=== PATIENT | female | born 1980 | race Caucasian/White ===

== ENCOUNTER → 2020-11-19 11:55 | Outpatient (BNVA) | payer OTHER, SELFPAY | PROVIDERS: PCP Internal Medicine; Visit Provider Physician Assistant Medical | DX: S63.501A Unspecified sprain of right wrist, initial encounter (principal); S56.911A Strain of unspecified muscles, fascia and tendons at forearm level, right arm, initial encounter; W51.XXXA Accidental striking against or bumped into by another person, initial encounter | CPT/HCPCS: 73110; 99203 ==

== ENCOUNTER → 2020-11-27 15:02 | Outpatient (BNVA) | payer OTHER, SELFPAY | PROVIDERS: PCP Internal Medicine; Visit Provider Physician Assistant Medical | DX: S63.501A Unspecified sprain of right wrist, initial encounter (principal); W22.8XXA Striking against or struck by other objects, initial encounter | CPT/HCPCS: 99213 ==

== ENCOUNTER → 2020-12-09 14:56 | Outpatient (BNVA) | payer OTHER, SELFPAY | PROVIDERS: PCP Internal Medicine; Visit Provider Physician Assistant Medical | DX: S69.81XD Other specified injuries of right wrist, hand and finger(s), subsequent encounter (principal); W22.8XXD Striking against or struck by other objects, subsequent encounter | CPT/HCPCS: 99213 ==

== ENCOUNTER 2021-01-13 15:00 | Outpatient (RCR) | payer OTHER, SELFPAY | END 2021-02-25 08:21 | disposition home or self-care (01) | LOC: HO.OT 15:00 | PROVIDERS: PCP Internal Medicine; Visit Provider Physician Assistant Medical | DX: S69.91XD Unspecified injury of right wrist, hand and finger(s), subsequent encounter (principal) | CPT/HCPCS: 97033; 97110; 97165; 97760 ==

== ENCOUNTER → 2023-11-15 11:42 | Outpatient (BNVA) | payer OTHER, SELFPAY | PROVIDERS: PCP Internal Medicine; Visit Provider Physician Assistant Medical | DX: S63.602A Unspecified sprain of left thumb, initial encounter (principal); X50.1XXA Overexertion from prolonged static or awkward postures, initial encounter | CPT/HCPCS: 73110; 73130; 99204 ==

== ENCOUNTER → 2023-11-23 15:13 | Outpatient (BNVA) | payer OTHER, SELFPAY | PROVIDERS: PCP Internal Medicine; Visit Provider Physician Assistant Medical | DX: S63.8X2A Sprain of other part of left wrist and hand, initial encounter (principal); X50.1XXA Overexertion from prolonged static or awkward postures, initial encounter | CPT/HCPCS: 99213 ==

== ENCOUNTER → 2023-12-07 15:19 | Outpatient (BNVA) | payer OTHER, SELFPAY | PROVIDERS: PCP Internal Medicine; Visit Provider Registered Nurse | DX: S63.592D Other specified sprain of left wrist, subsequent encounter (principal); S63.602D Unspecified sprain of left thumb, subsequent encounter; X50.1XXD Overexertion from prolonged static or awkward postures, subsequent encounter | CPT/HCPCS: 99213 ==

== ENCOUNTER → 2024-01-03 15:53 | Outpatient (BNVA) | payer OTHER, SELFPAY | PROVIDERS: PCP Internal Medicine Nephrology; Visit Provider Physician Assistant Medical | DX: S63.592D Other specified sprain of left wrist, subsequent encounter (principal); X50.1XXD Overexertion from prolonged static or awkward postures, subsequent encounter | CPT/HCPCS: 99213 ==

== ENCOUNTER 2024-03-09 14:29 | Outpatient (RCR) | payer OTHER, BC, SELFPAY ==
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
== END 2024-04-04 08:19 | disposition home or self-care (01) ==
LOC: HO.OT 14:29
PROVIDERS: PCP Internal Medicine Nephrology; Visit Provider Registered Nurse
DX: S63.502D Unspecified sprain of left wrist, subsequent encounter (principal)
CPT/HCPCS: 97033; 97110; 97140; 97166; 97530; 97535

== ENCOUNTER 2024-08-30 08:57 | Outpatient (RCR) | payer OTHER, BC, SELFPAY | END 2024-08-30 09:44 | disposition home or self-care (01) | LOC: HO.OT 08:57 | PROVIDERS: PCP Internal Medicine Nephrology; Visit Provider Orthopaedic Surgery | DX: S63.502D Unspecified sprain of left wrist, subsequent encounter (principal) | CPT/HCPCS: 97110; 97165 ==

== ENCOUNTER 2025-02-06 14:22 | Outpatient (AMB) | payer BC, OTHER, SELFPAY ==
--- NOTE | 2025-02-06 14:26 | A.OFFPC_ITS ---
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 Accompanied by: Self / Same As Patient Allergies sulfamethoxazole (From BACTRIM) Allergy (Intermediate, Verified 02/06/25 14:26) RASH trimethoprim (From BACTRIM) Allergy (Intermediate, Verified 02/06/25 14:26) RASH ciprofloxacin (From CIPRO) Allergy (Unknown, Verified 02/06/25 14:26) VOMITTING From CIPRO Adverse Reaction (Unknown, Uncoded 11/23/19 16:44) VOMITTING Medication List - Last Reconciled 02/06/25 by Sam Joyner MD albuterol sulfate 90 mcg/actuation (Ventolin HFA) 2 puffs inhalation Q6H PRN escitalopram oxalate 10 mg PO DAILY gabapentin 300 mg PO BID Tobacco use date assessed: 02/06/25 Dental Screening Dental Screen Date: 02/06/25 Did you have a dental visit in the last 12 months?: Yes HPI HPI Comments History of Present Illness Details History of Present Illness The patient is a 44 year old individual presenting to [facility] care with a new primary care physician. Anxiety and Depression: The patient has a long-standing history of depression and anxiety. The patient previously saw a therapist about six years ago, but the therapist retired. 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 The patient also notes depression and anxiety related to the patient's partner's history of alcoholism, although the partner has been sober for 11 months. The patient reports anxiety is more prominent than depression at present, with symptoms of shakiness. Past medication trials include Zoloft, which the patient did not like, and Prozac, which made the patient feel like a zombie. Mild Asthma: The patient has a history of mild asthma and is prescribed an albuterol inhaler for as-needed use. Vulvodynia: The patient has a diagnosis of vulvodynia, a gynecological condition causing chronic nerve pain. The patient takes gabapentin and receives as-needed nerve injections from a manager clinical applications for this condition. The patient previously participated in pelvic floor physical therapy. Tobacco Use: The patient is a former cigarette smoker, having quit approximately 12 years ago. The patient smoked for about five years, typically more in the morning, at night, and socially, but less than a full pack per day. 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 - Family Status: The patient's partner h as been sober from alcoholism for 11 months. - The patient has children. - Stressors: Reports feeling overwhelmed with responsibilities as a mother, teacher, and caregiver for aging parents. - Substance Use: Former cigarette smoker , quit 12 years ago after smoking for 5 years. Family History: - Mother had an emergency surgery for a perforated colon, with no cancer found. - Irritable bowel syndrome (IBS) is pres ent in the family. - Denies family history of cancer. Past Medical History - Mild asthma - Depression, longstanding - Anxiety, longstanding - Vulvodynia - Hospitalization: Only for childbirth v ia . Health Maintenance - An order will be placed for a screenin g mammogram. - A referral will be placed for a dermat ology consultation for evaluation of a facial skin lesion. - Comprehensive bloodwork was ordered, i ncluding CBC, CMP, HbA1c, hepatitis B and C, HIV, lipid panel, magnesium, syphilis screen, thyroid screen, vitamin B12, folate, and vitamin D. - A follow-up visit is scheduled in two weeks to review lab results and assess the patient's response to escitalopram. [facility] Medical History (Updated 02/06/25 @ 15:21 by Sam Joynre MD) Tobacco use Vulvodynia Mild intermittent asthma Anxiety and depression Skin macule Family History (Updated 02/06/25 @ 14:34 by Piper Mack CMA) Mother HTN (hypertension) Colon perforation Father Seizure Social History Housing: House Patient Tobacco Use Status: Former Tobacco user service: No Current occupational status: employed Cognitive needs: No Hearing needs: No Vision needs: Yes (glasses & contacts) Questionnaire PHQ-9 Over the last 2 weeks, how often have you been bothered by any of the following problems? 1. Little interest or pleasure in doing things: not at all 2. Feeling down, depressed, or hopeless: not at all 3. Trouble falling or staying asleep, or sleeping too much: nearly every day 4. Feeling tired or having little energy: more than half the days 5. Poor appetite or overeating: not at all 6. Feeling bad about yourself - or that you are a failure or have let yourself or your family down: not at all 7. Trouble concentrating on things, such as reading the newspaper or watching television: not at all 8. Moving or speaking so slowly that other people could have noticed. Or the opposite - being so fidgety or restless that you have been moving around a lot more than usual: more than half the days 9. Thoughts that you would be better off or of hurting yourself in some way: not at all Total score: 7 Depression Screening Interpretation: Negative Depression Screening Done: Yes Source: Developed by Drs. Cameron Roa, Mary Elizalde, Segundo Kumar and colleagues, with an educational quang from [employer]. Thrive Questionnaire Date Thrive assessed: 02/06/25 I am a: Patient What is your living situation today?: I have a steady place to live Within the past 12 months, did the food you bought not last and you didn't have the money to get more?: Never true Within the past 12 months, did you worry whether your food would run out before you got money to buy more?: Never true Do you have trouble paying for medicines?: No Do you have trouble getting transportation to medical appointments?: No Do you have trouble paying your heating and electricity bill?: No Do you have trouble taking care of your child, family member or friend?: No Do you have trouble with day-to-day activities such as bathing, preparing meals, shopping, managing finances, etc.?: No Are you currently unemployed and looking for a job?: No Are you interested in more education?: No Please select the resources that you would like help with: None Currently or been in a relationship where the following occur: No concerns reported THRIVE Score: 0 AUDIT C Alcohol Use Questionnaire (AUDIT-C) 1. How often do you have a drink containing alcohol?: Monthly or less 2. How many drinks containing alcohol do you have on a typical day when you are drinking?: 1 or 2 3. How often do you have six or more drinks on one occasion?: Less than monthly Total Score: 2 SARA-7 AMB Questionnaire SARA-7 Date SARA - 7 assessed: 02/06/25 Feeling nervous, anxious, or on edge: 3 = Nearly every day Not being able to stop or control worryin = More than half the days Worrying too much about different things: 2 = More than half the days Trouble relaxin = Several days Being so restless that it is hard to sit still: 1 = Several days Becoming easily annoyed or irritable: 0 = Not at all Feeling afraid as if something awful might happen: 0 = Not at all Total SARA-7 score (0-4 normal; 5-9 mild; 10-14 moderate; 15-21 severe): 9 Source: Developed by Drs. Cameron Roa, Mary Elizalde, Segundo Kumar and colleagues, with an educational quang from [employer]. Review of Systems Narrative Review of Systems - Respiratory: Reports a history of mild asthma and chronic postnasal drip. - Psychiatric: Reports long-standing depression and anxiety; feels overwhelmed and shaky. - Gynecological: Reports chronic pelvic pain secondary to vulvodynia. - Skin: Reports a crescencio on the face. - Lower Extremities: Denies swelling. 10-point ROS reviewed and negative except as noted in HPI Physical exam (Primary Care) Vital Signs: Last Vital Signs Temp 97.9 F 02/06/25 14:30 Pulse 98 02/06/25 14:30 BP 125/70 02/06/25 14:30 Pulse Ox 100 02/06/25 14:30 Oxygen Delivery Method Room Air 02/06/25 14:30 BMI result Body Mass Index 23.0 Tobacco/Smoking Status: Tobacco use Status Tobacco use date assessed 02/06/25 02/06/25 14:27 Patient Tobacco Use Status Former Tobacco user 02/06/25 14:38 PHQ-9: PHQ-9 Score PHQ-9: Total score 7 02/06/25 14:27 Depression Screening Interpretation: Negative Thrive Assessment: Date of Thrive Assessment Date Thrive assessed 02/06/25 02/06/25 14:27 Currently or been in a relationship where the following occur: No concerns reported Narrative Physical Exam General: Well-appearing, in no acute distress. Vital signs: Within normal limits. HEENT: Normocephalic, atraumatic. PERRLA, EOMI. Conjunctiva clear, sclera anicteric. Oropharynx clear, mucous membranes moist. TMs intact bilaterally. Neck: Supple, no lymphadenopathy, no thyromegaly, no JVD or carotid bruits. Cardiovascular: RRR, normal S1/S2, no murmurs, rubs, or gallops. Peripheral pulses 2+ and symmetric. No edema. Respiratory: Lungs clear to auscultation bilaterally, no wheezes, rales, or rhonchi. Normal effort. Abdomen: Soft, non-tender, non-distended. Normoactive bowel sounds. No hepatosplenomegaly, no masses. MSK: Full range of motion, no joint swelling or deformity. Normal gait. Skin: Warm, dry, intact. No rashes, lesions, or pallor. Neuro: Alert and oriented x3. Cranial nerves II-XII intact. Strength 5/5 throughout. Sensation intact. Reflexes 2+ symmetric. Normal coordination and gait. Psych: Appropriate mood and affect. Normal judgment and insight. Patient reports history of depression and anxiety, currently considering restarting therapy and medication. Office Procedures Flu Questionnaire Does the patient have a severe egg allergy?: No Does the patient have severe life threatening allergies?: No Does the patient have a fever or illness today?: No Has the patient ever had Guillain-Greentop Syndrome?: No Has the patient ever had any past reaction to a flu shot?: No Immunizations Fluarix [id number] (PF) 45 mcg (15 mcg x 3)/0.5 mL IM syringe Performing Provider: Sam Joyner MD Performing Location: [facility] Documented (not given) by: Piper Mack CMA on 02/06/25 14:43 Reason Not Given: Received Previously Coding Level of Care Code New Pt Level 4 (91945) Diagnoses Anxiety and depression F41.9; F32.A Mild intermittent asthma J45.20 Vulvodynia N94.819 Tobacco use Z72.0 Assessment & Plan Assessment & Plan (1) Anxiety and depression: Code(s): F41.9 - Anxiety disorder, unspecified; F32.A - Depression, unspecified Category: Medical (2) Mild intermittent asthma: Code(s): J45.20 - Mild intermittent asthma, uncomplicated Category: Medical (3) Vulvodynia: Code(s): N94.819 - Vulvodynia, unspecified Category: Medical (4) Tobacco use: Code(s): Z72.0 - Tobacco use Category: Social Hx Plan Consent The risks, benefits, and alternatives of initiating treatment for anxiety were discussed. This included discussing that escitalopram (Lexapro) can cause fatigue and takes approximately four weeks to reach full therapeutic effect. After discussion, the patient provided verbal consent to start escitalopram 10 mg, proceed with recommended lab work, and accept referrals for a mammogram and therapy. Patient was informed and verbally consented to the use of an ambient scribe for clinic note documentation during this visit. Plan 1. Anxiety Disorder - Will initiate escitalopram (Lexapro) 10 mg daily for anxiety. - A 30-day supply was sent to the pharmacy. - The patient was counseled that the medication takes about four weeks to become fully effective and may cause initial fatigue. - Provided referral to [facility] for individual therapy; noted the convenience of telehealth services. 2. Allergic Rhinitis - A nasal spray will be prescribed for chronic postnasal drip. - Cetirizine will also be prescribed to help with allergic symptoms. 3. Vulvodynia - The patient will continue current management with gabapentin and as-needed nerve injections via the patient's manager clinical applications. Discussion Notes I met with the patient, a 44-year-old individual, who is establishing primary care. We discussed the patient's significant anxiety, which is multifactorial and exacerbated by stressors related to work, family, and a parent's health. I recommended initiating escitalopram 10 mg after reviewing the patient's prior medication trials, and I explained the benefits, potential side effects such as fatigue, and the four-week timeline for full therapeutic effect. The patient agreed to this plan. We also discussed the benefit of therapy, and I provided a referral to a behavioral health group that offers convenient telehealth services. We addressed necessary health maintenance, ordering baseline comprehensive labs, a screening mammogram, and a referral to dermatology for a facial skin lesion after I provided education on the ABCDEs of skin cancer. I will see the patient for a follow-up in two weeks to review these results and assess the response to the new medication. Patient Instructions - Start taking Escitalopram (Lexapro) 10 mg by mouth once daily for anxiety. - Be aware that this medication may take about 4 weeks to feel the full benefit and could make you feel tired at first. - Use the prescribed nasal spray and Cetirizine (an allergy pill) for your postnasal drip and allergy symptoms. - Call [facility] at [phone] to set up a therapy appointment. - They have a website you can look at and appointments are done over video call for your convenience. - We have ordered a mammogram for you; the imaging facility will call you to schedule it. - We have placed a referral for you to see a smokehouse worker (skin doctor). - Please call your insurance company to get a list of skin doctors in your network, then call our office to let us know who you will be seeing. - Please go to the lab today to have your blood drawn. - Schedule a follow-up appointment in two weeks to go over your lab results and see how the medication is working for you. Medical Decision Making The patient is a 44-year-old individual establishing primary care with chief concerns of anxiety and management of chronic conditions. 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 Given the patient's report of anxiety being more prominent than depression and poor past experiences with fluoxetine and sertraline, escitalopram was selected as an appropriate first- line agent due to its favorable efficacy and side-effect profile for anxiety disorders. A referral for therapy is crucial for addressing the underlying psychosocial stressors contributing to the patient's anxiety. The patient's chronic postnasal drip, in the context of a history of mild asthma, is suggestive of allergic rhinitis, making a trial of intranasal steroids and an oral antihistamine a reasonable next step. Age-appropriate health maintenance screenings were initiated, including a baseline mammogram and a dermatology evaluation for a facial lesion, as well as comprehensive baseline laboratory studies. A two-week follow-up is scheduled to monitor for medication side effects, assess initial response, and review diagnostic results. Total Time Statement 30 MIN Total time spent caring for the patient today includes pre-visit chart review, documentation, review of laboratory and diagnostic imaging results, medication reconciliation, medically necessary evaluation, counseling on diagnoses, care coordination, ordering appropriate tests and medications, review of tests performed by other providers, reporting test results to the patient, and communication with other healthcare providers. Orders: Orders Influenza [id number] Immunization Today Z23 - Encounter for immunization Complete Blood Count Auto Diff Today Z13.9 - Encounter for screening, un specified HIV Ab/Ag Today Z13.9 - Encounter for screening, unspecified Lipid Panel Today Z13.9 - Encounter for screening, unspecified Vitamin B12 and Folate Today Z13.9 - Encounter for screening, unspecified Hemoglobin A1c Today Z13.9 - Encounter for screening, unspecified Hepatitis B Surface Antigen Today Z13.9 - Encounter for screening, unspecified Syphilis Screen Today Z13.9 - Encounter for screening, unspecified Comprehensive Met. Panel Today Z13.9 - Encounter for screening, unspecified Hepatitis C Antibody Today Z13.9 - Encounter for screening, unspecified TSH reflex Free T4 Today Z13.9 - Encounter for screening, unspecified UA CC w/rflx Micro + Cult Today Z13.9 - Encounter for screening, unspecified Magnesium Today Z13.9 - Encounter for screening, unspecified Vitamin D 1,25 dihydroxy Today Z13.9 - Encounter for screening, unspecified Hepatitis B Surface Antibody Today Z13.9 - Encounter for screening, unspecified MM screening mammo BI Today Z12.31 - Encounter for screening mammogram for malignant neoplasm of breast Referrals Dermatology Referral L98.8 - Other specified disorders of the skin and subcutaneous tissue Medications: New escitalopram oxalate 10 mg PO DAILY 30 tabs 0RF cetirizine 10 mg PO DAILY 90 tabs 0RF azelastine administer into each nostril 1 spray intranasal BID 30 mL 0RF
[2025-02-06 14:30] VITALS: BP 125/70; PULSE 98; TEMP 36.6; O2SAT 100; BMI 23.0
--- OUTSIDE RECORDS SUMMARY | 2025-02-06 16:20 | XMS_ITS | Encounter Summary ---
Author Organization [facility] Address [address] [place] [phone] Phone Care Team Providers Care Elastic Attacher Zigzag Name Role Phone Nadine French MD Primary Care Provider [phone] Reason for Referral * Physical Therapy (Routine) - Closed Specialty Diagnoses / Procedures Referred By Contjoann t Referred To Contact Physical Therapy Diagnoses N94.10 UNSPECIFIED DYSPAREUNIA Procedures Established PT System, Provider Not In, PhD [id number] [place] [id number] Phone: tel: Referral ID Status Reason Start Date Expiration Date Visits Re quested Visits Authorized [id number] Closed 10/28/2016 03/07/2017 20 20 Encounter Details Date Type Department Care Team (Latest Contact Info) Description 03/03/2017 Transcribe Orders [facility] [address] [place] [address] Lisandro Ross MD [address] [place] [address] Encounter for rehabilitation (Primary Dx) Social History Tobacco Use Types Packs/Day Years Used Date Smoking Tobacco: Never Assessed Comments Unknown Sex and Gender Information Value Date Recorded Sex Assigned at Not on file Legal Sex Female 3:52 PM EDT Gender Identity Not on file Sexual Orientation Not on file documented as of this encounter Plan of Treatment Scheduled Referrals Name Type Priority Associated Diagnoses Orde r Schedule Ambulatory referral to [facility] Physical Therapy Outpatient Referral Routine Encounter for rehabilitation Ordered: 03/03/2017 documented as of this encounter Visit Diagnoses Diagnosis Encounter for rehabilitation- Primary documented in this encounter Care Teams Elastic Attacher Zigzag Relationship Specialty Start Date End Date Nadine French MD [address] [place] [address] PCP - General Internal Medicine 01/06/17 documented as of this encounter Additional Source Comments The information contained in this document represents components of the legal health record. It is not the complete legal health record.[facility]
--- OUTSIDE RECORDS SUMMARY | 2025-02-06 16:20 | XMS_ITS | Clinical Summary ---
Author Organization [facility] Address [address] [address] Phone Care Team Providers Care Hearing Therapy Director Name Role Phone Nadine French MD Primary Care Provider [phone] Social History Tobacco Use Types Packs/Day Years Used Date Smoking Tobacco: Never Assessed Education Answer Date Recorded Are you interested in more education? Not on anibal e 07/03/2022 Are you concerned about learning? Not on file 07/03/2022 No 07/03/2022 No 07/03/2022 Digital Access Answer Date Recorded No 08/04/2022 No 08/04/2022 No 08/04/2022 Reliable internet access at home? Not on file 08/04/2022 Device with a working camera? Not on file Comments Unknown Sex and Gender Information Value Date Recorded Sex Assigned at Not on file Legal Sex Female 3:52 PM EDT Gender Identity Not on file Sexual Orientation Not on file Plan of Treatment Health Maintenance Due Date Last Done Comments DEPRESSION SCREENING 1993 SMOKING Hx and SMOKELESS TOBACCO SCREENING 1994 HEPATITIS C SCREENING 06/05/1999 HIV ONE-TIME SCREENING (18-65 YEARS) 06/05/1999 PAP SMEAR 2002 MAMMOGRAM 2021 INFLUENZA VACCINE (#1) 2024 9, 12/25/2016, 12/03/2015, Additional history exists COVID-19 VACCINE ( season) 2024 05/16/2020 Adult Td,Tdap Booster 01/06/2025 01/06/2015 , 03/25/2012, 03/07/2007 HEPATITIS A VACCINES Aged Out No long er eligible based on patient's age to complete this topic HIB VACCINES Aged Out No longer eligi ble based on patient's age to complete this topic MENINGOCOCCAL VACCINES (ACWY) Aged Out No longer eligible based on patient's age to complete this topic MENINGOCOCCAL VACCINES (B) Aged Out N o longer eligible based on patient's age to complete this topic PNEUMOCOCCAL VACCINES (0-49 years) Aged Out No longer eligible based on patient's age to complete this topic Medical Devices Not on file [facility] [address] [place], [place] [address] [place] [address] [place], [place] [id number] Care Teams Hearing Therapy Director Relationship Specialty Start Date End Date Nadine French MD [address] [place] [address] PCP - General Internal Medicine 01/06/17 Additional Source Comments The information contained in this document represents components of the legal health record. It is not the complete legal health record.[facility]
== END 2025-02-06 15:09 | disposition home or self-care (01) ==
LOC: HO.HMCFMS 14:23
PROVIDERS: Visit Provider Student in an Organized Health Care Education/Training Program
DX: F41.9 Anxiety disorder, unspecified (principal); F32.A Depression, unspecified; J45.20 Mild intermittent asthma, uncomplicated; N94.819 Vulvodynia, unspecified; Z72.0 Tobacco use; Z23 Encounter for immunization

== ENCOUNTER 2025-02-06 14:22 | Outpatient (REF) | payer BC, SELFPAY ==
--- OUTSIDE RECORDS SUMMARY | 2025-02-06 16:57 | XMS_ITS | Clinical Summary ---
Author Organization [facility] Address [address] [place] [address] Care Team Providers Care Shoe Treer Name Role Phone Nadine French MD Primary Care Provider [phone] Allergies Active Allergy Reactions Criticality Noted Date Comments Ciprofloxacin Nausea And Vomiting Medium 04/19/2014 Sulfamethoxazole-Trimethoprim Hives Medium 2009 Medications acetaminophen (TYLENOL) 500 mg tablet Take 2 Tabs by mouth 3 times daily (with meals). 04/22/2017 Active albuterol HFA (PROAIR HFA ; PROVENTIL HFA ; VENTOLIN HFA) 90 mcg/actuation inhaler Inhale 2 Puffs into the lungs every 4 hours. 07/30/2016 Active fluticasone propionate (FLONASE) 50 mcg/actuation nasal spray Two sprays per nostril once daily 10/09/2019 Active gabapentin (NEURONTIN) 300 mg capsule Take 1 Cap by mouth 3 times daily. Active ondansetron (ZOFRAN) 4 mg tablet Take 1-2 Tabs by mouth every 8 hours as needed for Nausea. 11/08/2019 Active Active Problems Problem Noted Date Diagnosed Date Anxiety state 03/13/2024 Depression 03/13/2024 Migraine 09/28/2017 Exercise-induced asthma 03/04/2016 Rubella non-immune status, antepartum 06/27/2014 Overview (03/13/2024): Needs pp vaccination Shoulder pain 07/07/2010 Cervical dysplasia 03/07/2007 Overview (03/13/2024): Colposcopy 12/12 Urinary frequency 03/07/2007 Immunizations Immunization Administration Dates Next Due HPV, Quadrivalent 06/14/2007,02/08/2007,12/08/19 07 Influenza trivalent, with pr eservative (Fluzone; Afluria) 6mo and older 12/16/2007 Influenza, Unspecified 12/03/2015,10/30/2014 Measles 09/16/2005 Mumps 09/16/2005 PPD Test 03/07/2007,11/04/2004 Rubella 09/16/2005 Tdap Tetanus diptheria acell ular pertussis (Boostrix; Adacel) 7yo and older 01/06/2015,03/07/2007 Surgical History Surgery Date Site/Laterality Comments ESOPHAGOGASTRODUODENOSCOPY 03/23/11 PROCEDURE: [place] ESOPHAGOGASTRODUODENOSCOPY TRANSORAL DIAGNOSTIC; COMMENT: normal VAGINOSCOPY 2006 PROCEDURE: [place] COLPOSCOPY CERVIX BX CERVIX & ENDOCRV CURRETAGE; COMMENT: mild dysplasia WISDOM TOOTH EXTRACTION 1999 PROCEDURE: HISTORICAL WISDOM TEETH EXTRACTION; COMMENT: all 4 MULTIPLE TOOTH EXTRACTIONS 2009 PROCEDURE: EACH ADD TOOTH EXTRACTION; COMMENT: 2 additional teeth removed Medical History Medical History Date Comments Depressive disorder, not els ewhere classified DX:Depressive disorder, not elsewhere classified; COMMENT: has weekly meetings with a councelor Anxiety state, unspecified DX:An xiety state, unspecified Cervical dysplasia 03/07/2007 DX:Cervical d ysplasia; COMMENT: Colposcopy 12/12 Urinary frequency DX:Urinary omar quency Family History Medical History Relation Name Comments Diabetes Maternal Grandmother Hypertension Mother Other: leukemia Paternal Grandfather Other cancer Paternal Grandmother unknown ?? Relation Name Status Comments Brother Alive x2 Father Alive Maternal Grandfather Maternal Grandmother Mother Alive Paternal Grandfather Paternal Grandmother Social History Tobacco Use Types Packs/Day Years Used Date Smoking Tobacco: Former Cigarettes 0 Q uit: 09/24/2013 Smokeless Tobacco: Never Alcohol Use Standard Drinks/Week Comments No 0 (1 standard drink = 0.6 oz pur e alcohol) Comments Unknown Sex and Gender Information Value Date Recorded Sex Assigned at Not on file Legal Sex Female 8:20 AM EST Gender Identity Not on file Sexual Orientation Not on file Obstetrics History Plan of Treatment Health Maintenance Due Date Last Done Comments Breast Cancer Screening 1981 Hepatitis B Vaccines (1 of 3 - 19+ 3-dose series) 2000 Pneumococcal Vaccine: Pediatrics (0 to 5 Years) and At-Risk Patients (6 to 49 Years) (1 of 2 - PCV) 2000 Hepatitis C Screening 02/08/2022 Social Influencers of Health Screening 02/08/2022 Depression Screening 03/08/2024 Cervical Cancer Screening: P ap Smear 08/13/2024 08/13/2021 COVID-19 Vaccine (1 - 2024-2 6 season) 2024 Influenza Vaccine (#1) 2024 6, 10/30/2014, 12/16/2007 DTaP,Tdap,and Td Vaccines (3 - Td or Tdap) 01/06/2025 01/06/2015, 03/07/2007 RSV Immunization Adult Patients (1 - 1-dose 75+ series) 2056 HPV Vaccines Completed 06/14/2007, 02/08/2007, 12/07/2006 HIV Screening Completed 06/26/2014 HIB Vaccines Aged Out No longer eligi ble based on patient's age to complete this topic Hepatitis A Vaccines Aged Out No long er eligible based on patient's age to complete this topic IPV Vaccines Aged Out No longer eligi ble based on patient's age to complete this topic MMR Vaccines Aged Out No longer eligi ble based on patient's age to complete this topic Meningococcal ACWY Vaccine Aged Out N o longer eligible based on patient's age to complete this topic Meningococcal B Vaccine Aged Out No l onger eligible based on patient's age to complete this topic RSV Immunization Patients Under 20 months Aged Out No longer eligible b ased on patient's age to complete this topic Varicella Vaccines Aged Out No longer eligible based on patient's age to complete this topic Procedures Procedure Name Priority Date/Time Associated Diagnosis Comments PAP SMEAR Routine 08/13/2021 HIV SCREENING Routine 06/26/2014 from Last 3 Months or Most Recently Relevant to Health Maintenance Results * Pap Smear (08/13/2021) Pap smear No Interpretation , Abstracted us Historical Provider HEALTH MAINTENANCE Final Result * HIV Screening (06/26/2014) HIV Screening Abstracted us Historical Provider HEALTH MAINTENANCE Final Result from Last 3 Months or Most Recently Relevant to Health Maintenance Care Teams Shoe Treer Relationship Specialty Start Date End Date Nadine French MD [address] [place] [address] PCP - General 01/05/02
--- OUTSIDE RECORDS SUMMARY | 2025-02-06 16:57 | XMS_ITS ---
Author Name [facility] Organization Unknown Care Team Organization Name Specialty Phone Email Start Date End Da te [facility] Nadine French Primary Care 01/13/2022 4
[2025-02-06 17:50] LABS: Appearance Urine Clear; Glucose Urine UA Negative (Negative); PH 7.0 (5.0-9.0); Specific Gravity - Urine 1.015 (1.005-1.025)
[2025-02-06 17:58] LABS: MANUAL DIFF FLAG NO
[2025-02-06 18:07] LABS: Hematocrit 35.8 % (37.0-47.0); Hemoglobin 11.9 g/dl (12.0-16.0); Imm Gran Abs Auto 0.02 X10*3/uL (0.00-0.03); Imm Gran Pct Auto 0.2 % (0.0-0.4); Lymphocytes Absolute Auto 2.1 X10*3/uL (1.2-4.9); Mean Corpuscular HGB Conc 33.2 g/dl (31.0-35.0); Mean Corpuscular Hemoglobin 30.4 pg (27.0-33.0); Mean Corpuscular Volume 91.6 fL (80.0-98.0); NRBC Abs Auto 0.000 X10*3/uL (0.0-0.012); NRBC Pct Auto 0.0 /100WBC (0.0-0.2); Platelet Count 260 X10*3/uL (160-400); Red Blood Count 3.91 X10*6/uL (4.20-5.50); White Blood Count 8.7 X10*3/uL (4.8-10.8)
[2025-02-06 18:39] LABS: Alanine Aminotransferase 20 U/L (0-31); Albumin Level 5.0 g/dL (3.5-5.0); Alkaline Phosphatase 58 U/L (39-117); Anion Gap 12 (12-20); Aspartate Amino Transferase 20 U/L (5-31); Blood Urea Nitrogen 11 mg/dL (9-16); Calcium 9.3 mg/dL (8.4-10.2); Carbon Dioxide 26 mmol/L (22-29); Chloride 106 mmol/L (96-108); Cholesterol 167 mg/dL (<200); Estimated Glomerular Filt Rate > 60; HDL Cholesterol 61 mg/dL (>40); Magnesium 2.0 mg/dL (1.6-2.6); Potassium 3.5 mmol/L (3.3-5.1); Sodium 140 mmol/L (135-145); Total Protein 7.0 g/dL (6.5-8.0); Triglycerides 77 mg/dL (<150)
[2025-02-06 18:55] LABS: Folate 8.7 ng/mL (> or = 4.0); Vitamin B12 371 pg/mL (200-900)
[2025-02-07 04:49] LABS: Syphilis Screen Nonreactive (Nonreactive)
[2025-02-07 05:24] LABS: HBS Num1 48.99 mIU/mL (0-7.99); HBsAGNum1 0.30 S/CO (0.00-0.99); HIV Num 1 0.05 S/CO (0.00-0.99); Hepatitis B Surface Antigen Negative (Negative); ~HepC Num1 0.06 S/CO (0.00-0.79); ~Hepatitis B Surface Antibody REACTIVE (Nonreactive); ~Hepatitis C Antibody Nonreactive (Nonreactive)
[2025-02-12 07:24] LABS: VITAMIN D (1,25 OH) D3 44 pg/mL; Vit D (1,25-Dihydroxy) Total 44 pg/mL (18-72); Vitamin D (1,25 OH) D2 <8 pg/mL
== END 2025-02-06 14:23 | disposition home or self-care (01) ==
LOC: HO.HKASLDS 14:22
PROVIDERS: PCP Student in an Organized Health Care Education/Training Program; Visit Provider Student in an Organized Health Care Education/Training Program
DX: Z13.9 Encounter for screening, unspecified (principal); Z28.89 Immunization not carried out for other reason; F41.9 Anxiety disorder, unspecified; F32.A Depression, unspecified; J45.20 Mild intermittent asthma, uncomplicated; N94.819 Vulvodynia, unspecified; Z87.891 Personal history of nicotine dependence
CPT/HCPCS: 36415; 80053; 80061; 81003; 82607; 82652; 82746; 83036; 83735; 84443; 85025; 86706; 86780; 86803; 87340; 87389; 90471; 96127

== ENCOUNTER 2025-02-21 16:20 | Outpatient (AMB) | payer BC, SELFPAY ==
--- NOTE | 2025-02-21 16:25 | A.OFFPC_ITS ---
Vital Signs 02/21/25 16:31 Height 5 ft 10 in Weight 155 lb 4 oz BMI 22.3 BP 138/73 Blood Pressure Location Lt brachial Position Sitting Respiration 18 Pulse 71 Pulse Source Pulse Oximeter Temp 98.2 F Temp Source Oral Pulse Oximetry (%) 99 Oxygen Delivery Method Room Air Intake Visit Reasons: 2 wk - lab review Intake Note: Patient present for lab review. Timber Surveyor Required: No Accompanied by: Self / Same As Patient Allergies sulfamethoxazole (From BACTRIM) Allergy (Intermediate, Verified 02/21/25 16:30) RASH trimethoprim (From BACTRIM) Allergy (Intermediate, Verified 02/21/25 16:30) RASH ciprofloxacin (From CIPRO) Allergy (Unknown, Verified 02/21/25 16:30) VOMITTING From CIPRO Adverse Reaction (Unknown, Uncoded 02/21/25 16:30) VOMITTING Medication List - Last Reconciled 02/21/25 by Sam Joyner MD albuterol sulfate 90 mcg/actuation (Ventolin HFA) 2 puffs inhalation Q6H PRN ascorbic acid (vitamin C) 500 mg PO DAILY azelastine 1 spray intranasal BID cetirizine 10 mg PO DAILY escitalopram oxalate 10 mg PO DAILY ferrous sulfate (iron) 325 mg PO DAILY fluconazole 150 mg PO Q3D 2 doses gabapentin 300 mg PO BID mecobalamin (vitamin B12) 1,000 mcg sublingual DAILY Tobacco use date assessed: 02/06/25 Dental Screening Dental Screen Date: 02/06/25 HPI HPI Comments History of Present Illness Details History of Present Illness The patient is a 44 year old female presenting for a review of lab results. Iron deficiency anemia: The patient has a history of heavy menstrual periods and reports associated symptoms including feeling cold frequently, fatigue, hair loss, headaches, heart racing, shortness of breath, and dizziness upon standing. Vitamin B12 deficiency: Recent lab results indicate a vitamin B12 level of 371, which is on the low side of the normal range. Vaginal candidiasis: The patient reports a history of developing yeast infections frequently after her menstrual periods, which she associates with the use of pads. She currently believes she has a yeast infection. Social History: - Nutrition: Advised to increase water a nd fiber intake, with suggestions to eat prunes. Family History: - Mother: Has a history of anemia. Diagnostic Results: - CBC: Red blood cells, hemoglobin, and hematocrit are low. - Comprehensive Metabolic Panel: Sodium, potassium, chloride, renal function, glucose, calcium, and magnesium are normal. - Liver Function Tests: Normal. - Lipid Panel: Triglycerides, total chol esterol, LDL, and HDL are normal. - Vitamin B12: 371 (normal range 200-900 ). - Vitamin D: Normal. - Folate: Normal. - Thyroid Function Tests: Normal. - Urinalysis: Negative. - Infectious Disease Screen: Hepatitis B , hepatitis C, syphilis, and HIV are negative. - Hepatitis B Surface Antibody: Reactive , indicating immunity from vaccination. Past Medical History - History of heavy menstrual periods. - History of recurrent vaginal yeast inf ections, particularly after menstruation. - Hepatitis B immunity secondary to vacc ination. Health Maintenance - Screening for infectious diseases incl uding Hepatitis B, Hepatitis C, syphilis, and HIV were negative. - Hepatitis B vaccination status confirm ed via reactive surface antibody test. - Counseled on increasing dietary fiber and water intake. [facility] Medical History (Updated 02/21/25 @ 19:18 by Sam Joyner MD) Vaginal candidiasis Low vitamin B12 level Menorrhagia Iron deficiency anemia Tobacco use Vulvodynia Mild intermittent asthma Anxiety and depression Skin macule Family History Mother HTN (hypertension) Colon perforation Father Seizure Social History (Updated 02/21/25 @ 16:31 by Brian Thomas CMA) Housing: House Alcohol intake: current Patient Tobacco Use Status: Former Tobacco user Substance Use Type: Marijuana service: No Current occupational status: employed Cognitive needs: No Hearing needs: No Vision needs: Yes (glasses & contacts) Questionnaire PHQ-9 Over the last 2 weeks, how often have you been bothered by any of the following problems? 1. Little interest or pleasure in doing things: not at all 2. Feeling down, depressed, or hopeless: not at all 3. Trouble falling or staying asleep, or sleeping too much: nearly every day 4. Feeling tired or having little energy: more than half the days 5. Poor appetite or overeating: not at all 6. Feeling bad about yourself - or that you are a failure or have let yourself or your family down: not at all 7. Trouble concentrating on things, such as reading the newspaper or watching television: not at all 8. Moving or speaking so slowly that other people could have noticed. Or the opposite - being so fidgety or restless that you have been moving around a lot more than usual: more than half the days 9. Thoughts that you would be better off or of hurting yourself in some way: not at all Total score: 7 Depression Screening Interpretation: Negative Depression Screening Done: Yes 63409 - PHQ-9 Billing: Yes Source: Developed by Drs. Cameron Roa, Mary Elizalde, Segundo Kumar and colleagues, with an educational quang from [employer]. Thrive Questionnaire Date Thrive assessed: 02/02/25 I am a: Patient What is your living situation today?: I have a steady place to live Within the past 12 months, did the food you bought not last and you didn't have the money to get more?: Never true Within the past 12 months, did you worry whether your food would run out before you got money to buy more?: Never true Do you have trouble paying for medicines?: No Do you have trouble getting transportation to medical appointments?: No Do you have trouble paying your heating and electricity bill?: No Do you have trouble taking care of your child, family member or friend?: No Do you have trouble with day-to-day activities such as bathing, preparing meals, shopping, managing finances, etc.?: No Are you currently unemployed and looking for a job?: No Are you interested in more education?: No Please select the resources that you would like help with: None Currently or been in a relationship where the following occur: No concerns reported THRIVE Score: 0 AUDIT C Alcohol Use Questionnaire (AUDIT-C) 1. How often do you have a drink containing alcohol?: Monthly or less 2. How many drinks containing alcohol do you have on a typical day when you are drinking?: 1 or 2 3. How often do you have six or more drinks on one occasion?: Less than monthly Total Score: 2 SARA-7 AMB Questionnaire SARA-7 Date SARA - 7 assessed: 02/06/25 Feeling nervous, anxious, or on edge: 3 = Nearly every day Not being able to stop or control worryin = More than half the days Worrying too much about different things: 2 = More than half the days Trouble relaxin = Several days Being so restless that it is hard to sit still: 1 = Several days Becoming easily annoyed or irritable: 0 = Not at all Feeling afraid as if something awful might happen: 0 = Not at all Total SARA-7 score (0-4 normal; 5-9 mild; 10-14 moderate; 15-21 severe): 9 Source: Developed by Drs. Cameron Roa, Mary Elizalde, Segundo Kumar and colleagues, with an educational quang from [employer]. SARA-7 Assessment Billing SARA-7 Assessment Tool: SARA-7 Assessment 07192 Review of Systems Narrative Review of Systems - Constitutional: Reports feeling cold and tired. - Integumentary: Reports hair falling out. - Neurological: Reports headaches and dizziness upon standing. - Cardiovascular: Reports heart racing. - Respiratory: Reports shortness of breath. - Genitourinary: Reports heavy menstrual periods and currently has symptoms of a vaginal yeast infection. 10-point ROS reviewed and negative except as noted in HPI Physical exam (Primary Care) Vital Signs: Last Vital Signs Temp 98.2 F 02/21/25 16:31 Pulse 71 02/21/25 16:31 Resp 18 02/21/25 16:31 BP 138/73 02/21/25 16:31 Pulse Ox 99 02/21/25 16:31 Oxygen Delivery Method Room Air 02/21/25 16:31 BMI result Body Mass Index 22.3 Tobacco/Smoking Status: Tobacco use Status Tobacco use date assessed 02/06/25 02/21/25 16:30 Patient Tobacco Use Status Former Tobacco user 02/21/25 16:31 PHQ-9: PHQ-9 Score PHQ-9: Total score 7 02/21/25 16:30 Depression Screening Interpretation: Negative Thrive Assessment: Date of Thrive Assessment Date Thrive assessed 02/02/25 02/21/25 16:30 Currently or been in a relationship where the following occur: No concerns reported Narrative Physical Exam General: Well-appearing, in no acute distress. Vital signs: Within normal limits. HEENT: Normocephalic, atraumatic. PERRLA, EOMI. Conjunctiva clear, sclera anicteric. Oropharynx clear, mucous membranes moist. TMs intact bilaterally. Neck: Supple, no lymphadenopathy, no thyromegaly, no JVD or carotid bruits. Cardiovascular: RRR, normal S1/S2, no murmurs, rubs, or gallops. Peripheral pulses 2+ and symmetric. No edema. Respiratory: Lungs clear to auscultation bilaterally, no wheezes, rales, or rhonchi. Normal effort. Abdomen: Soft, non-tender, non-distended. Normoactive bowel sounds. No hepatosp lenomegaly, no masses. MSK: Full range of motion, no joint swelling or deformity. Normal gait. Skin: Warm, dry, intact. No rashes, lesions, or pallor. Neuro: Alert and oriented x3. Cranial nerves II-XII intact. Strength 5/5 throughout. Sensation intact. Reflexes 2+ symmetric. Normal coordination and gait. Psych: Appropriate mood and affect. Normal judgment and insight. Coding Level of Care Code Est Pt Level 3 (75577) Add On Problem Visit Only Diagnoses Iron deficiency anemia D50.9 Menorrhagia N92.0 Low vitamin B12 level R79.89 Vaginal candidiasis B37.31 Additional Codes SARA-7 Assessment Billing - SARA-7 Assessment Tool: SARA-7 Assessment 96041 ([id number]) PHQ-9 - 52645 - PHQ-9 Billing: Yes ([id number]) Assessment & Plan Assessment & Plan (1) Iron deficiency anemia: Code(s): D50.9 - Iron deficiency anemia, unspecified Category: Medical (2) Menorrhagia: Code(s): N92.0 - Excessive and frequent menstruation with regular cycle Category: Medical (3) Low vitamin B12 level: Code(s): R79.89 - Other specified abnormal findings of blood chemistry Category: Medical (4) Vaginal candidiasis: Code(s): B37.31 - Acute candidiasis of vulva and vagina Category: Medical Plan Consent Patient was informed and verbally consented to the use of an ambient scribe for clinic note documentation during this visit. Plan 1. Iron Deficiency Anemia - Prescribed iron (ferrous sulfate) supplement to be taken daily. - Prescribed vitamin C (ascorbic acid) to be taken before the iron supplement to enhance absorption. - The patient was instructed to take the supplements one hour before or two hours after a meal. - The patient was counseled on potential side effects, including constipation and dark stools, and advised to increase water and fiber intake. 2. Vitamin B12 Deficiency - Prescribed vitamin B12 (cyanocobalamin) supplement to be taken once daily at night. 3. Vaginal Yeast Infection - Prescribed fluconazole (Diflucan) 150 mg. - The patient was instructed to take one tablet now and a second tablet two days later if symptoms persist. - A total of six tablets were prescribed for the patient to have on hand for future episodes. 4. Heavy Menstrual Periods - The underlying cause of iron deficiency anemia is likely the heavy menstrual cycles, which will be treated with iron supplementation. Discussion Notes I reviewed the lab results with the patient, explaining that her low red blood cells, hemoglobin, and hematocrit are indicative of anemia, which is likely the cause of her symptoms of feeling cold, fatigue, hair loss, headaches, and palpitations. I explained that in women her age, iron deficiency anemia is commonly due to heavy menstrual cycles. I discussed the plan to prescribe iron and vitamin C, clarifying that vitamin C enhances iron absorption, and provided instructions on how to take them. I counseled her on potential side effects like constipation and dark stools, recommending increased water and fiber intake. I also noted her vitamin B12 was on the low side and recommended a supplement. We discussed her reactive Hepatitis B antibody, and I reassured her this indicates normal immunity from prior vaccination. In response to her request, I prescribed Diflucan for her current yeast infection symptoms and provided extra refills for future episodes to avoid delays in treatment. I also clarified that her anemia is likely diet and menstruation-related rather than hereditary, unlike other types such as sickle cell anemia. I confirmed that all prescriptions were sent to her preferred pharmacy, [facility]. Patient Instructions - Take one iron tablet every day. - Take a vitamin C tablet before taking the iron tablet to help your body absorb it better. - Take the iron and vitamin C one hour before eating or two hours after eating. - Increase your intake of water and fiber (such as prunes) as iron can cause constipation. - You may use an [id number]-[id number] stool softener like MiraLAX if needed. - Be aware that your stools may turn darker in color, which is a normal side effect of the iron supplement. - Take one vitamin B12 tablet every night. - For your yeast infection symptoms, take one Diflucan 150 mg tablet now. If symptoms do not resolve, you may take a second tablet two days later. - Additional Diflucan tablets have been prescribed for you to keep on hand for any future yeast infections. - All prescriptions have been sent to [facility] pharmacy. Medical Decision Making The patient presented for a review of lab results, which revealed a microcytic anemia with low red blood cells, hemoglobin, and hematocrit. The patient's clinical presentation, including fatigue, cold intolerance, hair loss, and a history of heavy menstrual periods, strongly supports a diagnosis of iron deficiency anemia. Given her age and menstrual history, blood loss is the most probable cause. Management was initiated with oral ferrous sulfate and vitamin C to enhance absorption, with counseling on side effects. Additionally, her vitamin B12 level was on the low end of normal, so supplementation with oral cyanocobalamin was prescribed to optimize levels. Her other metabolic markers and infectious disease screenings were normal. The patient also reported symptoms consistent with an acute vaginal yeast infection and has a history of recurrent episodes after her period. Based on her request and history of successful treatment, fluconazole 150 mg was prescribed. To improve access to care and management of this recurrent issue, an additional supply was provided for patient-initiated therapy for future episodes. Total Time Statement 20 min Total time spent caring for the patient today includes pre-visit chart review, documentation, review of laboratory and diagnostic imaging results, medication reconciliation, medically necessary evaluation, counseling on diagnoses, care coordination, ordering appropriate tests and medications, review of tests performed by other providers, reporting test results to the patient, and communication with other healthcare providers. Medications: New ascorbic acid (vitamin C) 500 mg PO DAILY 90 tabs 0RF ferrous sulfate (iron) 325 mg PO DAILY 90 tabs 0RF mecobalamin (vitamin B12) place tablet under tongue and allow to dissolve for at least30 secs before swallowing 1,000 mcg sublingual DAILY 90 tabs 0RF fluconazole 150 mg PO Q3D 6 tabs 0RF 2 doses
[2025-02-21 16:31] VITALS: BP 138/73; PULSE 71; RESP 18; TEMP 36.8; O2SAT 99; BMI 22.3
--- OUTSIDE RECORDS SUMMARY | 2025-02-21 20:54 | XMS_ITS | Clinical Summary ---
Author Organization [facility] Address [address] [place] [address] Care Team Providers Care It Desktop Support Specialist Name Role Phone Nadine French MD Primary Care Provider [phone] Allergies Active Allergy Reactions Criticality Noted Date [...] Surgery Date Site/Laterality Comments ESOPHAGOGASTRODUODENOSCOPY 03/23/11 PROCEDURE: [place] ESOPHAGOGASTRODUODENOSCOPY TRANSORAL DIAGNOSTIC; COMMENT: normal VAGINOSCOPY 2006 PROCEDURE: [place] COLPOSCOPY CERVIX BX CERVIX & ENDOCRV CURRETAGE; [...] Recently Relevant to Health Maintenance Care Teams It Desktop Support Specialist Relationship Specialty Start Date End Date Nadine French MD [address] [place] [address] PCP - General 01/05/02
--- OUTSIDE RECORDS SUMMARY | 2025-02-21 20:54 | XMS_ITS | Encounter Summary ---
Author Organization [facility] Prior to 01/07/2024 Address [address] [place] [address] Care Team Providers Care Packing Inspector Name Role Phone Nadine French MD Primary Care Provider [phone] Encounter Details Date Type Department Care Team Description 08/07/2021 Manager Warehouse Report Medical Records [address] [place] [address] Edwina Trinh PA-C Social History Tobacco Use Types Packs/Day Years Used Date Smoking Tobacco: Former Cigarettes Q uit: 09/24/2013 Smokeless Tobacco: Never Comments:socially Alcohol Use Standard Drinks/Week Comments No 0 (1 standard drink = 0.6 oz pure alcohol) 3-4 beer/ weekend - quit with +Hcg Sex Assigned at Date Recorded Not on file documented as of this encounter Plan of Treatment Not on file documented as of this encounter Visit Diagnoses Not on filedocumented in this encounter Care Teams Packing Inspector Relationship Specialty Start Date End Date Nadine French MD [address], [place] [id number] PCP - General 01/05/02 documented as of this encounter
--- OUTSIDE RECORDS SUMMARY | 2025-02-21 20:55 | XMS_ITS | Encounter Summary ---
Author Organization [facility] Prior to 01/07/2024 Address [address] [place] [address] Care Team Providers Care Park Worker Supervisor Name Role Phone Nadine French MD Primary Care Provider [phone] Reason for Visit * Reason Onset Date Comments Post-gi Procedure Call 03/24/2011 Encounter Details Date Type Department Care Team Description 03/24/2011 Telephone Gastroenterology - [address] [address] Emmanuel Burch MD Post-gi Procedure Call Social History Tobacco Use Types Packs/Day Years Used Date Smoking Tobacco: Never Smokeless Tobacco: Never Alcohol Use Standard Drinks/Week Comments Yes 0 (1 standard drink = 0.6 oz pur e alcohol) 3-4 beer/ weekend Sex Assigned at Date Recorded Not on file documented as of this encounter Miscellaneous Notes * Telephone Encounter - Kirill Dominguez R.N. - 03/24/2011 1:28 PM EST Telephone call placed to patient post-procedure. Message left identifying that we were following upon their appointment and to call us if they have any concerns/problems. documented in this encounter Plan of Treatment Not on file documented as of this encounter Visit Diagnoses Not on filedocumented in this encounter Care Teams Park Worker Supervisor Relationship Specialty Start Date End Date Nadine French MD [address] [place] [address] PCP - General 01/05/02 documented as of this encounter
--- OUTSIDE RECORDS SUMMARY | 2025-02-21 20:55 | XMS_ITS | Encounter Summary ---
Author Organization [facility] Prior to 01/07/2024 Address [address] [place] [address] Care Team Providers Care Recreational Director Name Role Phone Nadine French MD Primary Care Provider [phone] Encounter Details Date Type Department Care Team Description 12/18/2021 Producer Report Medical Records [address] [place] [address] Timo Ferrara MD Social History Tobacco Use Types Packs/Day Years [...] on filedocumented in this encounter Care Teams Recreational Director Relationship Specialty Start Date End Date Nadine French MD [address] [place], [place] [phone] PCP - General 01/05/02 documented as of this encounter
--- OUTSIDE RECORDS SUMMARY | 2025-02-21 20:55 | XMS_ITS | Encounter Summary ---
Author Organization [facility] Prior to 01/07/2024 Address [address] [place] [address] Care Team Providers Care Receiving Coordinator Name Role Phone Nadine French MD Primary Care Provider Encounter Details Date Type Department Care Team Description 07/23/2004 Telephone Adult Medicine [address] [phone] Nadine French MD [address] [place] [address] [phone] Social History Tobacco Use Types Packs/Day Years Used Date Smoking Tobacco: Never Assessed Sex Assigned at Date Recorded Not on file documented as of this encounter Miscellaneous Notes * Telephone Encounter - 07/23/2004 1:06 PM EDTEncounter initiated. documented in this encounter Plan of Treatment Not on file documented as of this encounter Visit Diagnoses Not on filedocumented in this encounter Care Teams Receiving Coordinator Relationship Specialty Start Date End Date Nadine French MD [address] [place] [address] PCP - General 01/05/02 documented as of this encounter
--- OUTSIDE RECORDS SUMMARY | 2025-02-21 20:55 | XMS_ITS | Encounter Summary ---
Author Organization [facility] Prior to 01/07/2024 Address [address] [place] [address] Care Team Providers Care Bar Turner Name Role Phone Nadine French MD Primary Care Provider Encounter Details Date Type Department Care Team Description 07/31/2011 Night Triage Doc Medical Records [address] [place] [address] Abstract, Provider Social History Tobacco Use Types Packs/Day Years [...] on filedocumented in this encounter Care Teams Bar Turner Relationship Specialty Start Date End Date Nadine French MD [address] [place] [address] PCP - General 01/05/02 documented as of this encounter
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
--- OUTSIDE RECORDS SUMMARY | 2025-02-21 20:55 | XMS_ITS | Encounter Summary ---
Author Organization [facility] Address [address] [facility] [address] [place] [address] Phone Care Team Providers Care Mat Maker Name Role Phone Nadine French MD Primary Care Provider [phone] Reason for Referral * Physical Therapy (Routine) - Closed Specialty Diagnoses / Procedures Referred By Contjoann t Referred To Contact Physical Therapy Diagnoses N94.10 UNSPECIFIED DYSPAREUNIA Procedures Established PT System, Provider Not In, PhD [phone] [place] [address] Phone: tel: Referral ID Status Reason Start Date Expiration Date Visits Re quested Visits Authorized [id number] Closed 10/28/2016 03/07/2017 20 20 Encounter Details Date Type Department Care Team (Latest Contact Info) Description 03/03/2017 Transcribe Orders [facility] [address] [place] [address] Lisandro Ross MD [address] [place] [address] Encounter for rehabilitation (Primary Dx) [...] Diagnoses Orde r Schedule Ambulatory referral to [facility] Physical Therapy Outpatient Referral Routine Encounter for rehabilitation Ordered: 03/03/2017 documented as of this encounter Visit Diagnoses Diagnosis Encounter for rehabilitation- Primary documented in this encounter Care Teams Mat Maker Relationship Specialty Start Date End Date Nadine French MD [address] [place] [address] PCP - General Internal Medicine 01/06/17 documented as of this encounter Additional Source Comments The information contained in this document represents components of the legal health record. It is not the complete legal health record.[facility]
--- OUTSIDE RECORDS SUMMARY | 2025-02-21 20:55 | XMS_ITS | Clinical Summary ---
Author Organization [facility] Address [address] [address] Phone Care Team Providers Care Supervisor Prepress Name Role Phone Nadine French MD Primary Care Provider [phone] Social History Tobacco Use Types Packs/Day Years [...] topic Medical Devices Not on file [facility] [address] [place] [place] [address] [address] [place] [id number] Care Teams Supervisor Prepress Relationship Specialty Start Date End Date Nadine French MD [address] [place] [address] PCP - General Internal Medicine 01/06/17 Additional Source Comments The information contained in this document represents components of the legal health record. It is not the complete legal health record.[facility]
--- OUTSIDE RECORDS SUMMARY | 2025-02-21 20:55 | XMS_ITS | Encounter Summary ---
Author Organization [facility] Prior to 01/07/2024 Address [address] [place] [address] Care Team Providers Care Associate Director Data & Analytics Name Role Phone Nadine French MD Primary Care Provider [phone] Encounter Details Date Type Department Care Team Description 10/09/2021 Supervisor Painting Report Medical Records [address] [place] [address] [facility] Social History Tobacco Use Types Packs/Day Years [...] on filedocumented in this encounter Care Teams Associate Director Data & Analytics Relationship Specialty Start Date End Date Nadine French MD [address] [place], [place] [phone] PCP - General 01/05/02 documented as of this encounter
--- OUTSIDE RECORDS SUMMARY | 2025-02-21 20:55 | XMS_ITS | Encounter Summary ---
Author Organization [facility] Prior to 01/07/2024 Address [address] [place] [address] Care Team Providers Care Jig And Fixture Repairer Name Role Phone Nadine French MD Primary Care Provider [phone] Reason for Visit * Reason Onset Date Comments Medication 06/22/2014 Encounter Details Date Type Department Care Team Description 06/22/2014 Refill OBGYN - Jen [address] [place] [address] Sammi Brock CNM Medication Social History Tobacco Use Types Packs/Day Years Used Date Smoking Tobacco: Never Smokeless Tobacco: Never Alcohol Use Standard Drinks/Week Comments Yes 0 (1 standard drink = 0.6 oz pur e alcohol) 3-4 beer/ weekend Sex Assigned at Date Recorded Not on file documented as of this encounter Miscellaneous Notes * Telephone Encounter - Anna Russ M.A. - 06/22/2014 2:29 PM EDT Component Value Date HCG pos 06/22/2014 documented in this encounter Plan of Treatment Not on file documented as of this encounter Visit Diagnoses Not on filedocumented in this encounter Care Teams Jig And Fixture Repairer Relationship Specialty Start Date End Date Nadine French MD [address] [place] [address] PCP - General 01/05/02 documented as of this encounter
--- OUTSIDE RECORDS SUMMARY | 2025-02-21 20:55 | XMS_ITS | Encounter Summary ---
Author Organization [facility] Prior to 01/07/2024 Address [address] [place] [address] Care Team Providers Care Mine Environmental Engineer Name Role Phone Nadine French MD Primary Care Provider [phone] Encounter Details Date Type Department Care Team Description 09/12/2013 Academic Department Chair Report Medical Records [address] [place] [address] Social History Tobacco Use Types Packs/Day Years [...] on filedocumented in this encounter Care Teams Mine Environmental Engineer Relationship Specialty Start Date End Date Nadine French MD [address] [place] [address] PCP - General 01/05/02 documented as of this encounter
--- OUTSIDE RECORDS SUMMARY | 2025-02-21 20:55 | XMS_ITS | Encounter Summary ---
Author Organization [facility] Prior to 01/07/2024 Address [address] [place] [address] Care Team Providers Care Motorcycle Builder Name Role Phone Nadine French MD Primary Care Provider [phone] Encounter Details Date Type Department Care Team Description 02/15/2015 Construction Manager Report Medical Records [address] [place] [address] Minesh Bowen MD Social History Tobacco Use Types Packs/Day [...] on filedocumented in this encounter Care Teams Motorcycle Builder Relationship Specialty Start Date End Date Nadine French MD [address] [place], [place] [phone] PCP - General 01/05/02 documented as of this encounter
--- OUTSIDE RECORDS SUMMARY | 2025-02-21 20:55 | XMS_ITS | Encounter Summary ---
Author Organization [facility] Prior to 01/07/2024 Address [address] [place] [address] Care Team Providers Care Customer Consultant Name Role Phone Nadine French MD Primary Care Provider [phone] Reason for Visit * Reason Onset Date Comments REFERRAL 11/28/2015 Encounter Details Date Type Department Care Team Description 11/28/2015 Telephone Physiatry - [address] [address] Manuel Garcia DO REFERRAL Social History Tobacco Use Types Packs/Day Years Used Date Smoking Tobacco: Former Cigarettes Q uit: 09/24/2013 Smokeless Tobacco: Never Comments:socially Alcohol Use Standard Drinks/Week Comments No 0 (1 standard drink = 0.6 oz pure alcohol) 3-4 beer/ weekend - quit with +Hcg Sex Assigned at Date Recorded Not on file documented as of this encounter Miscellaneous Notes * Telephone Encounter - Jourdan Egan - 11/28/2015 8:35 AM EDT Patient was referred to Physiatry for :low back neck pain. Tried to contact patient several times by phone and sent out letter with no response. Patient will be taken off of referrals report. FYEmilia documented in this encounter Plan of Treatment Not on file documented as of this encounter Visit Diagnoses Not on filedocumented in this encounter Care Teams Customer Consultant Relationship Specialty Start Date End Date Nadine French MD [address] [place] [address] [phone] PCP - General 01/05/02 documented as of this encounter
--- OUTSIDE RECORDS SUMMARY | 2025-02-21 20:55 | XMS_ITS | Encounter Summary ---
Author Organization [facility] Prior to 01/07/2024 Address [address] [place] [address] Care Team Providers Care Sustainability Officer Name Role Phone Nadine French MD Primary Care Provider [phone] Encounter Details Date Type Department Care Team Description 10/11/2004 Orders Only Medical [address] [place] [address] Eliane Ledesma PA-C URINARY TRACT INFECTION, SITE NOT SPECIFIED (Primary Dx) Social History Tobacco Use Types Packs/Day Years Used Date Smoking Tobacco: Never Assessed Sex Assigned at Date Recorded Not on file documented as of this encounter Plan of Treatment Not on file documented as of this encounter Procedures Procedure Name Priority Date/Time Associated Diagnosis Comments CHG URNLS DIP STICK/TABLET REAGENT AUTO MICROSCOPY Routine 10/11/2004 4:41 PM EDT Urinary Tract Infection, Site Not Specified documented in this encounter Results * (ABNORMAL) URINALYSIS, COMPLETE (10/11/2004 4:41 PM EDT) GLUCOSE, URINE (UA) NEGATIVE NEGATIVE mg/dL [facility] BILIRUBIN URINE NEGATIVE NEGATIVE [facility] KETONE, URINE NEGATIVE NEGATIVE mg/dL [facility] SPECIFIC GRAVITY, URINE 1.002(L) 1.003 - 1.030 [facility] BLOOD, URINE SMALL NEGATIVE [facility] PH, URINE 7.0 5.0 - 8.0 [facility] PROTEIN, URINE NEGATIVE <= TRACE mg/dl [facility] UROBILINOGEN, URINE 0.2 0.2 - 1.0 E.U./dL [facility] NITRITE,URINE NEGATIVE NEGATIVE [facility] LEUKOCYTE ESTERASE, URINE MODERATE NEGATIVE [facility] RBC-Urine 0 0 - 4 /HPF [facility] WBC-Urine 15(H) 0 - 4 /hpf [facility] BACTERIA, URINE NEGATIVE [facility] 10/11/2004 4:41 PM EDT 10/11/2004 4:42 PM EDT Eliane Ledesma PA-C LAB [facility] [employer] documented in this encounter Visit Diagnoses Diagnosis Urinary tract infection, site not specified- Primary documented in this encounter Care Teams Sustainability Officer Relationship Specialty Start Date End Date Nadine French MD [address] [place] [address] PCP - General 01/05/02 documented as of this encounter
--- OUTSIDE RECORDS SUMMARY | 2025-02-21 20:55 | XMS_ITS | Encounter Summary ---
Author Organization [facility] Prior to 01/07/2024 Address [address] [place] [address] Care Team Providers Care Butcher Meat Name Role Phone Nadine French MD Primary Care Provider [phone] Encounter Details Date Type Department Care Team Description 08/14/2013 Orders Only OBGYN - [place] [address] [place] [address] Isamar Kaur CNM Social History Tobacco Use Types Packs/Day Years [...] on filedocumented in this encounter Care Teams Butcher Meat Relationship Specialty Start Date End Date Nadine French MD [address] [place], [place] [phone] PCP - General 01/05/02 documented as of this encounter
--- OUTSIDE RECORDS SUMMARY | 2025-02-21 20:55 | XMS_ITS | Encounter Summary ---
Author Organization [facility] Prior to 01/07/2024 Address [address] [place] [address] Care Team Providers Care Chief Catalyst Operator Name Role Phone Nadine French MD Primary Care Provider [phone] Encounter Details Date Type Department Care Team Description 05/22/2011 Hr Specialist Report Medical Records [address] [place] [address] Kirk Atkins PA-C Social History Tobacco Use Types Packs/Day [...] on filedocumented in this encounter Care Teams Chief Catalyst Operator Relationship Specialty Start Date End Date Nadine French MD [address] [place], [place] [phone] PCP - General 01/05/02 documented as of this encounter
--- OUTSIDE RECORDS SUMMARY | 2025-02-21 20:55 | XMS_ITS | Encounter Summary ---
Author Organization [facility] Prior to 01/07/2024 Address [address] [place] [address] Care Team Providers Care Room Service Attendant Name Role Phone Nadine French MD Primary Care Provider [phone] Encounter Details Date Type Department Care Team Description 05/15/2011 Coal Carrier Report Medical Records [address] Social History Tobacco Use Types Packs/Day Years [...] on filedocumented in this encounter Care Teams Room Service Attendant Relationship Specialty Start Date End Date Nadine French MD [address] [place] [address] PCP - General 01/05/02 documented as of this encounter
--- OUTSIDE RECORDS SUMMARY | 2025-02-21 20:55 | XMS_ITS | Encounter Summary ---
Author Organization [facility] Prior to 01/07/2024 Address [address] [place] [address] Care Team Providers Care Ore Mixer Name Role Phone Nadine French MD Primary Care Provider [phone] Reason for Visit * Reason Onset Date Comments Error 07/21/2014 opened in error Encounter Details Date Type Department Care Team Description 07/21/2014 Telephone Adult Urgent Care - [address] [phone] Nadine French MD [address] [place] [address] [phone] Error (opened in error) Social History Tobacco Use Types Packs/Day Years [...] on filedocumented in this encounter Care Teams Ore Mixer Relationship Specialty Start Date End Date Nadine French MD [address] [place] [address] [phone] PCP - General 01/05/02 documented as of this encounter
--- OUTSIDE RECORDS SUMMARY | 2025-02-21 20:55 | XMS_ITS | Encounter Summary ---
Author Organization [facility] Prior to 01/07/2024 Address [address] [place] [address] Care Team Providers Care Waste Reduction Coordinator Name Role Phone Nadine French MD Primary Care Provider [phone] Encounter Details Date Type Department Care Team Description 07/10/2021 Pattern Molder Report Medical Records [address] [place] [address] eNstor Robert MD Social History Tobacco Use Types Packs/Day [...] on filedocumented in this encounter Care Teams Waste Reduction Coordinator Relationship Specialty Start Date End Date Nadine French MD [address] [place], [place] [phone] PCP - General 01/05/02 documented as of this encounter
== END 2025-02-21 16:49 | disposition home or self-care (01) ==
LOC: HO.HMCFMS 16:21
PROVIDERS: PCP Student in an Organized Health Care Education/Training Program; Visit Provider Student in an Organized Health Care Education/Training Program
DX: D50.9 Iron deficiency anemia, unspecified (principal); N92.0 Excessive and frequent menstruation with regular cycle; R79.89 Other specified abnormal findings of blood chemistry; B37.31 Acute candidiasis of vulva and vagina

== ENCOUNTER → 2025-02-21 16:20 | Outpatient (BNVA) | payer BC, OTHER, SELFPAY | PROVIDERS: PCP Student in an Organized Health Care Education/Training Program; Visit Provider Student in an Organized Health Care Education/Training Program | DX: Z13.31 Encounter for screening for depression (principal); Z13.39 Encounter for screening examination for other mental health and behavioral disorders | CPT/HCPCS: 96127 ==

== ENCOUNTER 2025-03-06 10:45 | Outpatient (REF) | payer BC, SELFPAY ==
--- OUTSIDE RECORDS SUMMARY | 2025-03-06 14:28 | XMS_ITS | Clinical Summary ---
Author Organization [facility] Address [address] [address] Phone Care Team Providers Care Hog Pusher Name Role Phone Nadine French MD Primary Care Provider [phone] Social History Tobacco Use Types Packs/Day Years [...] topic Medical Devices Not on file [facility] [place] [place] [address] [address] [place], [place] [address] Care Teams Hog Pusher Relationship Specialty Start Date End Date Nadine French MD [address] [place] [address] PCP - General Internal Medicine 01/06/17 Additional Source Comments The information contained in this document represents components of the legal health record. It is not the complete legal health record.[facility]
--- OUTSIDE RECORDS SUMMARY | 2025-03-06 14:28 | XMS_ITS | Clinical Summary ---
[facility] Address [address] [place] [address] Care Team Providers Care Chef De Partie Name Role Phone Nadine French MD Primary Care Provider [phone] Allergies Active Allergy Reactions Criticality Noted Date [...] Surgery Date Site/Laterality Comments ESOPHAGOGASTRODUODENOSCOPY 03/23/11 PROCEDURE: ND ESOPHAGOGASTRODUODENOSCOPY TRANSORAL DIAGNOSTIC; COMMENT: normal VAGINOSCOPY 2006 PROCEDURE: ND COLPOSCOPY CERVIX BX CERVIX & ENDOCRV CURRETAGE; [...] Recently Relevant to Health Maintenance Care Teams Chef De Partie Relationship Specialty Start Date End Date Nadine French MD [address] [place] [address] PCP - General 01/05/02
--- OUTSIDE RECORDS SUMMARY | 2025-03-06 14:28 | XMS_ITS | Encounter Summary ---
Author Organization [facility] Address [address] [place] [address] Phone Care Team Providers Care Coffee Maker Servicer Name Role Phone Nadine French MD Primary Care Provider [phone] Reason for Referral * Physical Therapy (Routine) - Closed Specialty Diagnoses / Procedures Referred By Contjoann t Referred To Contact Physical Therapy Diagnoses N94.10 UNSPECIFIED DYSPAREUNIA Procedures Established PT System, Provider Not In, PhD [id number] [place] [address] Phone: tel: Referral ID Status Reason Start Date Expiration Date Visits Re quested Visits Authorized [id number] Closed 10/28/2016 03/07/2017 20 20 Encounter Details Date Type Department Care Team (Latest Contact Info) Description 03/03/2017 Transcribe Orders [facility] [address] [place] [address] Lisandro Ross MD [address] [place] [address] Encounter for rehabilitation (Primary Dx) [...] Diagnoses Orde r Schedule Ambulatory referral to [facility] Physical Therapy Outpatient Referral Routine Encounter for rehabilitation Ordered: 03/03/2017 documented as of this encounter Visit Diagnoses Diagnosis Encounter for rehabilitation- Primary documented in this encounter Care Teams Coffee Maker Servicer Relationship Specialty Start Date End Date Nadine French MD [address] [place] [phone] PCP - General Internal Medicine 01/06/17 documented as of this encounter Additional Source Comments The information contained in this document represents components of the legal health record. It is not the complete legal health record.[facility]
== END 2025-03-06 10:46 | disposition home or self-care (01) ==
LOC: HO.MAMMO 10:45
PROVIDERS: PCP Student in an Organized Health Care Education/Training Program; Visit Provider Student in an Organized Health Care Education/Training Program
DX: Z12.31 Encounter for screening mammogram for malignant neoplasm of breast (principal)
CPT/HCPCS: 77063; 77067

== ENCOUNTER → 2025-03-06 11:00 | Outpatient (BNV) | payer BC, SELFPAY | PROVIDERS: PCP Student in an Organized Health Care Education/Training Program; Visit Provider Internal Medicine | DX: Z12.31 Encounter for screening mammogram for malignant neoplasm of breast (principal) | CPT/HCPCS: 77063; 77067 ==